=== PATIENT | male | born 1950 ===

== ENCOUNTER 2018-09-04 10:38 | Emergency (ER) | payer MEDICARE, BC ==
--- NOTE | 2018-09-04 11:48 | UC ---
Skin Complaint HPI - HPI Summary HPI Summary: 68-year-old male comes in today with a chief complaint of a rash on the right lower motta. Been going on for days. It started 2 days after he was in the [place] with her was some poison amy. It started to spread. Initially kept it covered but did appear that that made it worse. They've been working on drying it since yesterday and actually looks slightly improved. No fevers or chills feels well otherwise. - History of Current Complaint Chief Complaint: UCRash Time Seen by Provider: 09/04/18 11:35 Stated Complaint: RASH Pain Intensity: 0 - Allergy/Home Medications Allergies/Adverse Reactions: Allergies Allergy/AdvReac Type Severity Reaction Status Date / Time No Known Allergies Allergy Verified 09/04/18 11:02 Home Medications: Home Medications Alendronate TAB (NF) [Fosamax TAB (NF)] 10 mg PO 09/04/18 [History] Aspirin 81 mg PO 09/04/18 [History] Cholecalciferol (Vitamin D3) [Vitamin D3] 1,000 unit PO 09/04/18 [History] Multivitamin [Multivitamins] 1 cap PO 09/04/18 [History] Review of Systems Constitutional: Negative Skin: Rash - SEE HPI Eyes: Negative ENT: Negative Respiratory: Negative Cardiovascular: Negative Gastrointestinal: Negative Motor: Negative Neurovascular: Negative Musculoskeletal: Negative Neurological: Negative Psychological: Negative Is Patient Immunocompromised?: No All Other Systems Reviewed And Are Negative: Yes PMH/Surg Hx/FS Hx/Imm Hx Previously Healthy: Yes - Surgical History Surgical History: Yes Surgery Procedure, Year, and Place: skin ca removal - Family History Known Family History: Positive: Cardiac Disease, Diabetes - Social History Alcohol Use: Occasionally Substance Use Type: None Smoking Status (MU): Never Smoked Tobacco Physical Exam Triage Information Reviewed: Yes Appearance: Well-Appearing, No Pain Distress, Well-Nourished Vital Signs: Initial Vital Signs Temp 97.5 F 09/04/18 10:55 Pulse 83 09/04/18 10:55 Resp 18 09/04/18 10:55 BP 133/69 09/04/18 10:55 Pulse Ox 98 09/04/18 10:55 Vital Signs Reviewed: Yes Eye Exam: Normal Eyes: Positive: Conjunctiva Clear Neck exam: Normal Neck: Positive: Supple Respiratory: Positive: No respiratory distress Musculoskeletal Exam: Normal Musculoskeletal: Positive: Strength Intact, ROM Intact Neurological Exam: Normal Neurological: Positive: Alert, Muscle Tone Normal Psychological Exam: Normal Psychological: Positive: Age Appropriate Behavior Skin: Positive: Other - On the right lower mot[place] there is a 6 cm x 4 cm erythematous patch that has CLEAR vesicles draining serous fluid. As no streaking I do not see any pus at this time. Course/Dx - Diagnoses Provider Diagnoses: POISON AMY Discharge - Sign-Out/Discharge Documenting (check all that apply): Patient Departure All imaging exams completed and their final reports reviewed: No Studies - Discharge Plan Condition: Stable Disposition: HOME Prescriptions: methylPREDNISolone [Medrol Dosepak 4 MG*] 0 mg PO .SEE ALINE INSTRUCTION #1 aline Mupirocin 1 applic TOPICAL TID #22 gm Patient Education Materials: Poison Amy (ED) Referrals: [facility] [place] [facility] [Outside] Additional Instructions: FOLLOW UP WITH YOUR DOCTOR IF NOT COMPLETELY IMPROVED. GET RECHECKED FOR ANY WORSENING OF YOUR CONDITION OR QUESTIONS OR CONCERNS. - Billing Disposition and Condition Condition: STABLE Disposition: Home
== END 2018-09-04 11:53 | disposition home or self-care (01) ==
LOC: UCEAST 10:38
DX: L23.7 Allergic contact dermatitis due to plants, except food (principal); Z79.82 Long term (current) use of aspirin; Z85.828 Personal history of other malignant neoplasm of skin
CPT/HCPCS: 99202; G0463